=== PATIENT | female | born 1970 | race Caucasian/White ===

== ENCOUNTER 2024-07-14 16:15 | Outpatient (CLI) | payer BC, SELFPAY ==
--- NOTE | ~2024-07-14 | XR_ITS ---
EXAMINATION: XR chest 2V 07/14/2024 16:24 INDICATION: Reactive tuberculin skin test PROCEDURE: 2 view chest COMPARISON: No prior studies for comparison. FINDINGS: The lungs are clear. The cardiomediastinal silhouette is within normal limits. There are no pleural effusions. There is no pneumothorax suspected. IMPRESSION: 1: NO ACUTE CARDIOPULMONARY DISEASE. Reviewed, dictated and finalized at location B. [employer] [employer]
== END 2024-07-14 16:16 | disposition home or self-care (01) ==
DX: R76.11 Nonspecific reaction to tuberculin skin test without active tuberculosis (principal)
CPT/HCPCS: 71046